=== PATIENT | female | born 1985 | race Caucasian/White ===

== ENCOUNTER 2016-11-16 09:08 | Emergency (ER) | payer OTHER ==
[~2016-11-16] VITALS: Wt 95.0 kg
[2016-11-16] MEDS ORDERED: ONDANSETRON 4 MG INJ IV STA (09:26)
[2016-11-16] MEDS ORDERED: morphine 4 MG/ML VIAL IV STA (09:26)
--- NOTE | 2016-11-16 09:29 | ERD ---
ER Documentation Chief Complaint Date/Time DATE: 11/16/16 TIME: 09:27 Chief Complaint EPIGASTRIC PAIN AND RIGHT SIDE AP FOR 3 MOS. WITH N/V AND DIARRHEA . HPI This is a 31-year-old female who presents to the emergency department today complaining of abdominal pain for the past 3 months. Patient states that the pain is worse after eating lasagna last night. States that she felt nauseated. States that she started with diarrhea today. States she has had abdominal pain in the past and last year had an ultrasound and was told that everything was normal. States she has some pain with urination. Denies any fevers or chills ROS All systems reviewed and are negative except as per history of present illness. Medications Home Meds Active Scripts Dicyclomine Hcl* (Bentyl*) 10 Mg Capsule, 10 MG PO QID, #30 CAP Prov:LUIS FERNANDO DALE PA-C 11/16/16 Hydrocodone/Acetaminophen (Woodbridge 5-325 Tablet) 1 Each Tablet, 1 TAB PO Q6H Y for PAIN, #12 TAB Prov:LUIS FERNANDO DALE PA-C 11/16/16 Acetaminophen* (Tylophen*) 500 Mg Capsule, 1 CAP PO Q6H Y for PAIN AND OR ELEVATED TEMP, #30 CAP Prov:LUIS FERNANDO DALE PA-C 11/16/16 Famotidine* (Pepcid*) 20 Mg Tablet, 20 MG PO BID for 14 Days, TAB Prov:LUIS FERNANDO DALEC 11/16/16 Physical Exam Vitals Vital Signs Date Time Temp Pulse Resp B/P Pulse Ox O2 Delivery O2 Flow Rate FiO2 11/16/16 09:12 98.8 90 20 128/68 99 Physical Exam Const: No acute distress Head: Atraumatic Eyes: Normal Conjunctiva ENT: Normal External Ears, Nose and Mouth. Neck: Full range of motion..~ No meningismus. Resp: Clear to auscultation bilaterally Cardio: Regular rate and rhythm, no murmurs Abd: Soft, epigastric, right upper quadrant tenderness, non distended. Normal bowel sounds. Mild nonspecific lower abdominal pain Skin: No petechiae or rashes Back: No midline or flank tenderness Ext: No cyanosis, or edema Neur: Awake and alert Psych: Normal Mood and Affect Result Diagram: 11/16/16 0940 11/16/16 0940 Results 24 hrs Laboratory Tests Test 11/16/16 09:30 11/16/16 09:40 Urine Color YELLOW Urine Clarity SLIGHTLY CLOUDY Urine pH 5.0 Urine Specific Cades 1.029 Urine Ketones NEGATIVEmg/dL Urine Nitrite NEGATIVEmg/dL Urine Bilirubin NEGATIVEmg/dL Urine Urobilinogen NEGATIVEmg/dL Urine Leukocyte Esterase TRACELeu/ul Urine Microscopic RBC 25/HPF Urine Microscopic WBC 12/HPF Urine Squamous Epithelial Cells MODERATE/HPF Urine Mucus MANY/HPF Urine Hemoglobin 2+mg/dL Urine Glucose NEGATIVEmg/dL Urine Total Protein 2+mg/dl White Blood Count 8.410^3/ul Red Blood Count 4.6210^6/ul Hemoglobin 13.3g/dl Hematocrit 39.2% Mean Corpuscular Volume 84.8fl Mean Corpuscular Hemoglobin 28.8pg Mean Corpuscular Hemoglobin Concent 33.9g/dl Red Cell Distribution Width 12.5% Platelet Count 16940^3/UL Mean Platelet Volume 10.2fl Neutrophils % 74.0% Lymphocytes % 15.1% Monocytes % 7.5% Eosinophils % 2.9% Basophils % 0.1% Nucleated Red Blood Cells % 0.0/100WBC Neutrophils # 6.210^3/ul Lymphocytes # 1.310^3/ul Monocytes # 0.610^3/ul Eosinophils # 0.210^3/ul Basophils # 0.010^3/ul Nucleated Red Blood Cells # 0.010^3/ul Sodium Level 144mmol/L Potassium Level 3.8mmol/L Chloride Level 103mmol/L Carbon Dioxide Level 25mmol/L Anion Gap 20 Blood Urea Nitrogen 12mg/dl Creatinine 0.49mg/dl Glucose Level 88mg/dl Calcium Level 9.0mg/dl Total Bilirubin 0.3mg/dl Direct Bilirubin 0.00mg/dl Indirect Bilirubin 0.3mg/dl Aspartate Amino Transf (AST/SGOT) 22IU/L Alanine Aminotransferase (ALT/SGPT) 36IU/L Alkaline Phosphatase 47IU/L Total Protein 8.1g/dl Albumin 4.6g/dl Globulin 3.50g/dl Albumin/Globulin Ratio 1.31 Lipase 34U/L Current Medications Medications (Trade) Dose Ordered Sig/Leonel Route PRN Reason Start Time Stop Time Status Last Admin Dose Admin Morphine Sulfate (morphine) 4 mg ONCE STAT IV 8/5/17 09:26 11/16/16 09:28 DC 11/16/16 09:55 Ondansetron HCl (Zofran Inj) 4 mg ONCE STAT IV 11/16/16 09:26 11/16/16 09:29 DC 11/16/16 09:55 Famotidine (Pepcid Iv) 20 mg ONCE ONCE IV 11/16/16 09:30 11/16/16 09:31 DC 11/16/16 09:55 DIAGNOSTIC IMAGING REPORT Patient: ROMEO CHANEL : 1985 Age: 31 Sex: F MR #: [id number] DOS: 11/16/1626 Ordering MD: LUIS FERNANDO DALE PA-C Location: [facility] Room/Bed: PROCEDURE: US Abdomen. CLINICAL INDICATION: Epigastric pain. TECHNIQUE: Multiple real-time images were acquired of the patient's abdomen and retroperitoneum utilizing a high resolution transducer. COMPARISON: None FINDINGS: The pancreas is unremarkable. The tail of the pancreas is obscured by bowel gas. The liver measures 17.4 cm in length which is enlarged. The liver is echogenic. No intrahepatic biliary ductal dilatation is identified. The gallbladder wall measures 2.1 mm. The right kidney is normal measuring 12.3 cm in length. The spleen and left kidney are not evaluated. IMPRESSION: 1. Hepatomegaly with fatty infiltration of the liver. 2. Normal pancreas with no evidence of ascites or of a pancreatic pseudocyst. The tail of the pancreas is obscured by bowel gas. RPTAT:AAJJ Physician Ethan Date Time Electronically viewed and signed by Physician Ethan on 11/16/2016 10:33 JM/ CC: LUIS FERNANDO DALE PA-C Procedures/MDM Is a 31-year-old female who presents the emergency department today complaining mostly of epigastric and right upper quadrant pain with nausea after eating. Given patient's physical exam I did obtain laboratory workup as well as imaging Laboratory workup shows no elevated white blood cell count. She is not anemic. Platelets are within normal limits. Electrolytes are within normal limits. Liver enzymes within normal limits. Lipase within normal limits. Glucose within normal limits. UA shows trace leukocyte esterase negative nitrites. There are moderate epithelial cells with 12 white blood cells. Urine test is negative Right upper quadrant ultrasound shows hepatomegaly with fatty infiltration of the liver. There is intrahepatic biliary ductal dilatation. Gallbladder wall is within normal limits. There is normal pancreas no evidence of ascites or pancreatic pseudocyst. No evidence of gallstones. Patient symptoms at this time is consistent with epigastric pain, vomiting and diarrhea possibly related to gastritis versus GERD especially the patient's pain was worse after eating lasagna. All results were explained to the patient. Patient had mild nonspecific abdominal pain in the lower abdomen which may be related to her diarrhea. I have low suspicion for acute surgical abdomen especially given negative laboratory workup. Patient was given morphine, Zofran and Pepcid here in the emergency department and symptoms improve Patient begin a per scription for Pepcid, Zofran, [place], Tylenol and Bentyl for her diarrhea. He was instructed to follow-up with a primary care doctor for referral to GI specialist. Patient was given a list of resources. At this time the patient is stable for discharge and outpatient management. Patient should follow up with their PCP in the next 1-2 days. They may return to the emergency department sooner for any persistent or worsening of symptoms. Patient understood and agreed with the plan. Departure Diagnosis: Primary Impression: Abdominal pain Abdominal location: epigastric Qualified Code: R10.13 - Epigastric pain Additional Impression: Nausea vomiting and diarrhea Condition: LUIS FERNANDO Kenny PA-C Nov 16, 2016 09:29
[2016-11-16] MEDS ORDERED: FAMOTIDINE 20 MG INJ IV ONE (09:30)
[2016-11-16 10:15] LABS: BASOPHILS % 0.1 % (0.0-2.0); EOSINOPHILS # 0.2 10^3/ul (0.0-0.5); EOSINOPHILS % 2.9 % (0.0-7.0); HEMATOCRIT 39.2 % (37.0-47.0); HEMOGLOBIN 13.3 g/dl (12.0-16.0); LYMPHOCYTES # 1.3 10^3/ul (0.8-2.9); LYMPHOCYTES % 15.1 % (15.0-51.0); MEAN CORPUSCULAR HEMOGLOBIN 28.8 pg (29.0-33.0); MEAN CORPUSCULAR HGB CONC 33.9 g/dl (32.0-37.0); MEAN CORPUSCULAR VOLUME 84.8 fl (82.0-101.0); MEAN PLATELET VOLUME 10.2 fl (7.4-10.4); MONOCYTE # 0.6 10^3/ul (0.3-0.9); MONOCYTES % 7.5 % (0.0-11.0); NEUTROPHIL # 6.2 10^3/ul (1.6-7.5); PLATELET COUNT 276 10^3/UL (140-415); RED BLOOD COUNT 4.62 10^6/ul (4.20-5.40); RED CELL DISTRIBUTION WIDTH 12.5 % (11.5-14.5); WHITE BLOOD COUNT 8.4 10^3/ul (4.8-10.8)
--- NOTE | 2016-11-16 10:33 | RADRPT ---
PROCEDURE: US Abdomen. CLINICAL INDICATION: Epigastric pain. TECHNIQUE: Multiple real-time images were acquired of the patient's abdomen and retroperitoneum ut ilizing a high resolution transducer. COMPARISON: None FINDINGS: The pancreas is unremarkable. The tail of the pancreas is obscured by bowel gas. The liver measures 17.4 cm in length which is enlarged. The liver is echogenic. No intrahepatic bi liary ductal dilatation is identified. The gallbladder wall measures 2.1 mm. The right kidney is normal measuring 12.3 cm in length. The spleen and left kidney are not evaluate d. IMPRESSION: 1. Hepatomegaly with fatty infiltration of the liver. 2. Normal pancreas with no evidence of ascites or of a pancreatic pseudocyst. The tail of the panc reas is obscured by bowel gas. RPTAT:AAJJ Physician Ethan Date Time Electronically viewed and signed by Physician Ethan on 11/16/2016 10:33 LYNDA/
[2016-11-16 10:35] LABS: ALBUMIN 4.6 g/dl (3.3-4.9); ALBUMIN/GLOBULIN RATIO 1.31; BILIRUBIN,INDIRECT 0.3 mg/dl (0-1.1); BILIRUBIN,TOTAL 0.3 mg/dl (0.2-1.3); CREATININE 0.49 mg/dl (0.44-1.00); POTASSIUM 3.8 mmol/L (3.5-5.1); TOTAL PROTEIN 8.1 g/dl (6.1-8.1)
[2016-11-16 10:35] LABS: ADD UMIC YES; UR ASCORBIC ACID NEGATIVE (NEGATIVE); UR BILIRUBIN (Dip) NEGATIVE (NEGATIVE); UR BLOOD (Dip) 2+ mg/dL (NEGATIVE); UR CLARITY SLIGHTLY CLOUDY (CLEAR); UR COLOR YELLOW (YELLOW); UR GLUCOSE (Dip) NEGATIVE (NEGATIVE); UR KETONES (Dip) NEGATIVE (NEGATIVE); UR LEUKOCYTE ESTERASE (Dip) TRACE Leu/ul (NEGATIVE); UR MUCUS MANY /HPF (NONE SEEN); UR NITRITE (Dip) NEGATIVE (NEGATIVE); UR RBC 25 /HPF (0-5); UR SPECIFIC GRAVITY (Dip) 1.029 (1.003-1.030); UR SQUAMOUS EPITHELIAL CELL MODERATE /HPF (FEW); UR TOTAL PROTEIN (Dip) 2+ mg/dl (NEGATIVE); UR UROBILINOGEN (Dip) NEGATIVE (NEGATIVE)
[2016-11-16] MEDS ORDERED: ACET500C5 PO (11:05)
[2016-11-16] MEDS ORDERED: FAMO-96 PO (11:05)
[2016-11-16] MEDS ORDERED: HYDR-906 PO (11:06)
[2016-11-16] MEDS ORDERED: DICY10CA60 PO (11:06)
[2016-11-16 11:28] VITALS: BP 113/66; PULSE 66; RESP 18; TEMP 98.6
== END 2016-11-16 11:30 | disposition home or self-care (01) ==
LOC: FTE 09:08
DX: R10.13 Epigastric pain (principal); R11.2 Nausea with vomiting, unspecified; R19.7 Diarrhea, unspecified
CPT/HCPCS: 36415; 76705; 80053; 81001; 83690; 85025; 96374; 96375; 99285; J2270; J2405